=== PATIENT | male | born 1960 | race Caucasian/White ===

== ENCOUNTER 2018-10-22 10:00 | Emergency (ER) | payer BC, MEDICARE ==
[2018-10-22] MEDS ORDERED: Sodium Chloride 0.9% 10 ML Syringe FLUSH PRN (10:31)
--- NOTE | 2018-10-22 10:38 | EDM.PDOC ---
ED HPI GENERAL MEDICAL PROBLEM - General Chief Complaint: Neuro Symptoms/Deficits Stated Complaint: fallen, mara remember Time Seen by Provider: 10/22/18 10:31 Source of Information: Reports: Patient, Family () History Limitations: Reports: No Limitations - History of Present Illness INITIAL COMMENTS - FREE TEXT/NARRATIVE: Patient is a 57-year-old gentleman who presents to the emergency department this morning with his and has a complaint of head injury. states that the fell twice this morning. 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 Currently undergoing physical therapy. This morning she states that he was bent over to pet the cat and fell forward and she found him on the floor. He was able to stand with no residual at that point. 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 was concerned because patient seemed unaware of what just happened. At this time patient denies headache, blurry vision, neck pain, nausea, vomiting, chest pain, or shortness of breath. However, because of neurologic status, it is difficult to assess if there is discomfort. Onset: Today Onset Date: 10/22/18 Onset Time: 09:20 Duration: Hour(s): Location: Reports: Head Quality: Reports: Other (Patient Denies pain at this time) Improves with: Reports: None Worsens with: Reports: None Context: Reports: Trauma Associated Symptoms: Reports: No Other Symptoms. Denies: Chest Pain, Nausea/ Vomiting - Related Data Allergies Allergy/AdvReac Type Severity Reaction Status Date / Time No Known Drug Allergies Allergy Cannot Verified 10/22/18 10:13 Remember Home Meds: Home Meds atorvaSTATin [Lipitor] 5 mg PO BEDTIME 08/12/16 [History] clonazePAM [Clonazepam] 0.5 mg PO TID 08/12/16 [History] Melatonin 3 mg PO BEDTIME 08/23/16 [History] Deutetrabenazine [Austedo] 12 mg PO DAILY 07/02/17 [History] Divalproex Sodium [Depakote] 250 mg PO BID 07/02/17 [History] Escitalopram Oxalate 20 mg PO DAILY 07/02/17 [History] Past Medical History Cardiovascular History: Reports: High Cholesterol Genitourinary History: Reports: Renal Calculus Neurological History: Reports: Other (See Below) Other Neuro History: tremors Psychiatric History: Reports: Anxiety, Depression Endocrine/Metabolic History: Reports: Other (See Below) Other Endocrine/Metabolic History: testing done for [place]'s - Past Surgical History HEENT Surgical History: Reports: Oral Surgery, Tonsillectomy Male Surgical History: Reports: Lithotripsy (ESWL), Ureteral Stent, Vasectomy Social & Family History - Family History Cardiac: Reports: CAD Oncologic: Reports: Prostate - Caffeine Use Caffeine Use: Reports: Soda ED ROS GENERAL - Review of Systems Review Of Systems: ROS reveals no pertinent complaints other than HPI. Constitutional: Reports: No Symptoms HEENT: Reports: No Symptoms Respiratory: Reports: No Symptoms Cardiovascular: Reports: No Symptoms Endocrine: Reports: No Symptoms GI/Abdominal: Reports: No Symptoms : Reports: No Symptoms Musculoskeletal: Reports: No Symptoms Skin: Reports: No Symptoms Neurological: Reports: Confusion. Denies: Headache Psychiatric: Reports: No Symptoms Hematologic/Lymphatic: Reports: No Symptoms Immunologic: Reports: No Symptoms ED EXAM, HEAD INJURY - Physical Exam Exam: See Below Exam Limited By: No Limitations General Appearance: Alert, WD/WN, No Apparent Distress Head: Atraumatic, Normocephalic. No: Scalp Lacerations, Scalp Swelling, Scalp Abrasions, Scalp Ecchymosis, Scalp Hematoma, Scalp Tenderness, [place]'s Sign, Facial Swelling Nexus Criteria: No: Posterior, Midline Cervical Tenderness, Evidence of Intoxication, Altered Level of Consciousness, Focal Neurological Deficit, Painful Distraction Injuries Eyes: Bilateral Eye: Abnormal EOM (Slow) Ears: Normal External Exam, Normal Canal, Normal TMs Nose: Normal Inspection, No Blood Throat/Mouth: Normal Inspection, Normal Oropharynx, No Airway Compromise Neck: Non-Tender, Full Range of Motion, Normal Alignment, Normal Inspection Respiratory: No Respiratory Distress, Lungs Clear, Normal Breath Sounds, No Accessory Muscle Use, Chest Non-Tender Cardiovascular: Regular Rate, Rhythm, No Murmur GI/Abdominal Exam: Normal Bowel Sounds, Soft, Non-Tender Back Exam: Normal Inspection Extremities: Normal Inspection, Normal Range of Motion, Non-Tender Neurologic: Alert, Normal Mood/Affect, Other (Mildly confused with no recollection of falling event) - [place]eland Coma Score Best Eye Response (Collins): (4) Open Spontaneously Best Verbal Response (Leland): (5) Oriented Best Motor Response (Collins): (6) Obeys Commands Leland Total: 15 Course - Vital Signs Last Recorded V/S: Last Vital Signs Temp 96.7 F 10/22/18 10:10 Pulse 76 10/22/18 10:10 Resp 18 10/22/18 10:10 BP 130/84 10/22/18 10:10 Pulse Ox 95 10/22/18 10:10 - Orders/Labs/Meds Orders: Active Orders 24 hr Category Date Time Status Peripheral IV Care [RC] . DIRECTED Care 10/22/18 10:31 Ordered Sodium Chloride 0.9% [Saline Flush] Med 10/22/18 10:31 Ordered 10 ml FLUSH Q8HR PRN Peripheral IV Insertion Adult [OM.PC] Routine Oth 10/22/18 10:31 Ordered Medication Orders Sodium Chloride (Saline Flush) 10 ml FLUSH Q8HR PRN PRN Reason: keep vein open Labs: Laboratory Tests 10/22/18 10/22/18 10/22/18 Range/Units 10:35 10:35 10:35 WBC 5.62 (5.00-10.00) 10^3/uL RBC 4.60 (4.50-6.00) 10^6/uL Hgb 15.1 (13.0-17.0) g/dL Hct 45.3 (40.0-52.0) % MCV 98.5 H D (82.0-92.0) fL MCH 32.8 H (27.0-31.0) pg MCHC 33.3 (32.0-36.0) g/dL RDW 12.4 (11.5-14.5) % Plt Count 156 (150-400) 10^3/uL MPV 11.6 H (7.4-10.4) fL Immature Gran % (Auto) 0.4 (0.0-5.0) % Neut % (Auto) 58.5 (50.0-70.0) % Lymph % (Auto) 26.0 (20.0-40.0) % [place] % (Auto) 11.7 H (2.0-8.0) % Eos % (Auto) 2.7 (1.0-3.0) % Baso % (Auto) 0.7 (0.0-1.0) % Immature Gran # (Auto) 0.02 (0.00-0.50) 10^3/uL Neut # (Auto) 3.29 (2.50-7.00) 10^3/uL Lymph # (Auto) 1.46 (1.00-4.00) 10^3/uL [place] # (Auto) 0.66 (0.10-0.80) 10^3/uL Eos # (Auto) 0.15 (0.10-0.30) 10^3/uL Baso # (Auto) 0.04 (0.00-0.10) 10^3/uL PT 9.7 (8.9-11.4) SEC INR 1.0 (0.9-1.1) APTT 26.4 (23.1-31.3) SEC Sodium 143 (136-145) mmol/L Potassium 4.7 (3.3-5.3) mmol/L Chloride 107 (98-115) mmol/L Carbon Dioxide 28.8 (21.0-32.0) mmol/L Anion Gap 11.9 (5-15) mmol/L BUN 45 H (6-25) mg/dL Creatinine 2.96 H (0.51-1.17) mg/dL Est Cr Clr Drug Dosing 1.05 mL/min Estimated GFR (MDRD) 22 mL/min Glucose 92 (75 - 99) mg/dL Calcium 9.1 (8.7-10.3) mg/dL Total Bilirubin 0.5 (0.2-1.0) mg/dL AST 11 L (15-37) U/L ALT 19 (12-78) U/L Alkaline Phosphatase 61 (46-116) IU/L Total Protein 7.2 (6.4-8.2) g/dL Albumin 3.33 (3.00-4.80) g/dL Specimen Type Urine Color (YELLOW) Urine Appearance (CLEAR) Urine pH (5.0-9.0) Ur Specific Lambert (1.005-1.030) Urine Protein (NEGATIVE) mg/dL Urine Glucose (UA) (NEGATIVE) mg/dL Urine Ketones (NEGATIVE) mg/dL Urine Occult Blood (NEGATIVE) Urine Nitrite (NEGATIVE) Urine Bilirubin (NEGATIVE) Urine Urobilinogen (0.2-1.0) E.U./dL Ur Leukocyte Esterase (NEGATIVE) Urine RBC (0-5) /HPF Urine WBC (0-5) /HPF Ur Epithelial Cells /LPF Urine Bacteria (NONE TO FEW) /HPF 10/22/18 Range/Units 11:30 WBC (5.00-10.00) 10^3/uL RBC (4.50-6.00) 10^6/uL Hgb (13.0-17.0) g/dL Hct (40.0-52.0) % MCV (82.0-92.0) fL MCH (27.0-31.0) pg MCHC (32.0-36.0) g/dL RDW (11.5-14.5) % Plt Count (150-400) 10^3/uL MPV (7.4-10.4) fL Immature Gran % (Auto) (0.0-5.0) % Neut % (Auto) (50.0-70.0) % Lymph % (Auto) (20.0-40.0) % [place] % (Auto) (2.0-8.0) % Eos % (Auto) (1.0-3.0) % Baso % (Auto) (0.0-1.0) % Immature Gran # (Auto) (0.00-0.50) 10^3/uL Neut # (Auto) (2.50-7.00) 10^3/uL Lymph # (Auto) (1.00-4.00) 10^3/uL [place] # (Auto) (0.10-0.80) 10^3/uL Eos # (Auto) (0.10-0.30) 10^3/uL Baso # (Auto) (0.00-0.10) 10^3/uL PT (8.9-11.4) SEC INR (0.9-1.1) APTT (23.1-31.3) SEC Sodium (136-145) mmol/L Potassium (3.3-5.3) mmol/L Chloride (98-115) mmol/L Carbon Dioxide (21.0-32.0) mmol/L Anion Gap (5-15) mmol/L BUN (6-25) mg/dL Creatinine (0.51-1.17) mg/dL Est Cr Clr Drug Dosing mL/min Estimated GFR (MDRD) mL/min Glucose (75 - 99) mg/dL Calcium (8.7-10.3) mg/dL Total Bilirubin (0.2-1.0) mg/dL AST (15-37) U/L ALT (12-78) U/L Alkaline Phosphatase (46-116) IU/L Total Protein (6.4-8.2) g/dL Albumin (3.00-4.80) g/dL Specimen Type Urinvoid Urine Color Yellow (YELLOW) Urine Appearance Clear (CLEAR) Urine pH 6.0 (5.0-9.0) Ur Specific [place] 1.025 (1.005-1.030) Urine Protein Negative (NEGATIVE) mg/dL Urine Glucose (UA) Negative (NEGATIVE) mg/dL Urine Ketones Negative (NEGATIVE) mg/dL Urine Occult Blood Trace-lysed H (NEGATIVE) Urine Nitrite Negative (NEGATIVE) Urine Bilirubin Negative (NEGATIVE) Urine Urobilinogen 0.2 (0.2-1.0) E.U./dL Ur Leukocyte Esterase Negative (NEGATIVE) Urine RBC 0-5 (0-5) /HPF Urine WBC 10-20 H (0-5) /HPF Ur Epithelial Cells Occasional /LPF Urine Bacteria Occasional (NONE TO FEW) /HPF Meds: Medications Generic Name Dose Route Start Last Admin Trade Name Freq PRN Reason Stop Dose Admin Sodium Chloride 10 ml 10/22/18 10:31 Saline Flush FLUSH Q8HR PRN keep vein open - Radiology Interpretation Free Text/Narrative:: CT head without contrast shows no intracranial process. Cervical spine without contrast shows no acute fracture CT Results Date: 10/22/18 - Re-Assessments/Exams Free Text/Narrative Re-Assessment/Exam: 10/22/18 12:03 Patient afebrile, appears nontoxic and is acting appropriate, vital signs stable , at bedside. Discussed elevated renal lab values with . These values are not out of norm for the patient. Patient will follow-up with PCP in one to days. Patient will return to emergency department if symptoms worsen. 10/22/18 12:05 Departure - Departure Time of Disposition: 12:03 Disposition: Home, Self-Care 01 Condition: Good Clinical Impression: Head injury due to trauma Qualifiers: Encounter type: initial encounter Qualified Code(s): S09.90XA - Unspecified injury of head, initial encounter Concussion Qualifiers: Encounter type: initial encounter Loss of consciousness presence/duration: without LOC Qualified Code(s): S06.0X0A - Concussion without loss of consciousness, initial encounter - Discharge Information Instructions: Concussion, Adult, [id number], Head Injury, Adult, [id number] Referrals: Teri Khalil MD [Primary Care Provider] - Forms: ED Department Discharge Additional Instructions: Follow-up with Dr. Peters in one to 2 days. Return to emergency department sooner if symptoms continue or worsen. Follow head injury precautions - My Orders Last 24 Hours: My Active Orders 10/22/18 10:31 Peripheral IV Care [RC] . DIRECTED Sodium Chloride 0.9% [Saline Flush] 10 ml FLUSH Q8HR PRN Peripheral IV Insertion Adult [OM.PC] Routine - Assessment/Plan Last 24 Hours: My Active Orders 10/22/18 10:31 Peripheral IV Care [RC] . DIRECTED Sodium Chloride 0.9% [Saline Flush] 10 ml FLUSH Q8HR PRN Peripheral IV Insertion Adult [OM.PC] Routine Assessment:: Head injury, concussion Plan: Follow-up with PCP in one to 2 days.
[2018-10-22 11:21] LABS: ANION GAP 11.9 mmol/L (5-15)
--- NOTE | 2018-10-22 11:39 | CT ---
[id number] CT/CT Head WO IV EXAM: CT Head WO IV CLINICAL DATA: HEAD INJURY. COMPARISON STUDY: MRI of the brain January 27, 2016. FINDINGS: No intracranial hemorrhage, extra-axial fluid collection, mass, or acute ischemia. Generalized parenchymal atrophy with scattered areas of nonspecific white matter disease, commonly seen as sequela of chronic microvascular ischemia. Soft tissues are unremarkable. Paranasal sinuses and mastoid air cells are clear. IMPRESSION: No acute intracranial findings. Robby Correa DO 10/22/18 1136 Thank you for allowing us to participate in the care of your patient.
--- NOTE | 2018-10-22 11:49 | CT ---
[id number] CT/CT Cervical Spine WO IV EXAM: NONCONTRAST CERVICAL SPINE CT INDICATION: Head injury. COMPARISON: January 27, 2016. DISCUSSION: Straightening of the cervical lordosis is somewhat more pronounced than on the prior examination. The vertebral bodies are otherwise normal in height and alignment. No fracture or suspicious osseous lesion is identified. Moderate degenerative disc disease at C5-C6 with mild to moderate changes at the remaining disc levels. Mild to moderate facet degeneration throughout the cervical spine. IMPRESSION: 1. No acute findings. Irvin Corley MD 10/22/18 1147 Thank you for allowing us to participate in the care of your patient.
[2018-10-22 14:34] VITALS: BP 125/75
== END 2018-10-22 12:15 | disposition home or self-care (01) ==
LOC: KA.ED 10:00
DX: S06.0X0A Concussion without loss of consciousness, initial encounter (principal); E78.00 Pure hypercholesterolemia, unspecified; F41.9 Anxiety disorder, unspecified; F32.9 Major depressive disorder, single episode, unspecified; G10 Huntington's disease; Z79.899 Other long term (current) drug therapy; W18.30XA Fall on same level, unspecified, initial encounter
CPT/HCPCS: 36415; 70450; 72125; 80053; 81001; 85025; 85610; 85730; 99284

== ENCOUNTER 2019-05-29 20:38 | Emergency (ER) | payer BC, MEDICARE, MEDICAID ==
--- NOTE | 2019-05-29 21:28 | EDM.PDOC ---
ED HPI GENERAL MEDICAL PROBLEM - General Stated Complaint: SYNCOPAL EPISODE Time Seen by Provider: 05/29/19 21:06 Source of Information: Reports: Patient, Family ( and son) History Limitations: Reports: No Limitations - History of Present Illness INITIAL COMMENTS - FREE TEXT/NARRATIVE: Patient brought via ambulance with syncopal episode that lasted about 15 minutes. He was eating at a restaurant with his family when they noticed he was becoming very drowsy. He was leaning over gradually further and further but still trying to eat then was unconscious and his held his head up. He vomited a little bit but didn't respond at all for about 15 minutes. He regained consciousness during the ambulance ride. He didn't experience incontinence during this. He has had a couple episodes of fecal incontinence and one of urine incontinence in last few days which his says isn't normal. He has Casi's Disease and significant kidney disease; also prostate cancer and a pelvic mass that are not being treated. She says he had some of these symptoms about a year ago when he was found to have sepsis. He did have a fever then but has not recently. His is suspicious he may have aspirated some of the emesis. - Related Data Allergies Allergy/AdvReac Type Severity Reaction Status Date / Time No Known Drug Allergies Allergy Cannot Verified 10/22/18 10:13 Remember Home Meds: Home Meds atorvaSTATin [Lipitor] 5 mg PO BEDTIME 08/12/16 [History] clonazePAM [Clonazepam] 0.5 mg PO BID 08/12/16 [History] Melatonin 10 mg PO BEDTIME 08/23/16 [History] Deutetrabenazine [Austedo] 12 mg PO BID 07/02/17 [History] Divalproex Sodium [Depakote] 250 mg PO BID 07/02/17 [History] Escitalopram Oxalate 20 mg PO DAILY 07/02/17 [History] Cholecalciferol (Vitamin D3) [Vitamin D3] 1,000 units PO DAILY 10/22/18 [History ] Magnesium 250 mg PO DAILY 10/22/18 [History] Past Medical History Cardiovascular History: Reports: High Cholesterol Genitourinary History: Reports: Renal Calculus Neurological History: Reports: Other (See Below) Other Neuro History: tremors Psychiatric History: Reports: Anxiety, Depression Endocrine/Metabolic History: Reports: Other (See Below) Other Endocrine/Metabolic History: testing done for [place]'s - Past Surgical History HEENT Surgical History: Reports: Oral Surgery, Tonsillectomy Male Surgical History: Reports: Lithotripsy (ESWL), Ureteral Stent, Vasectomy Social & Family History - Family History Cardiac: Reports: CAD Oncologic: Reports: Prostate - Caffeine Use Caffeine Use: Reports: Soda ED ROS GENERAL - Review of Systems Review Of Systems: See Below Constitutional: Denies: Fever, Chills HEENT: Denies: Throat Pain Respiratory: Denies: Shortness of Breath, Cough Cardiovascular: Reports: Syncope. Denies: Chest Pain GI/Abdominal: Reports: Diarrhea (recently but resolved now), Vomiting. Denies: Abdominal Pain : Denies: Dysuria, Flank Pain Musculoskeletal: Reports: Other (chronic tremor) Skin: Denies: Cyanosis, Jaundice, Mottled, Pallor, Diaphoresis Neurological: Reports: Syncope. Denies: Confusion, Dizziness, Seizure Psychiatric: Denies: Agitation, Anxiety - Physical Exam Exam: See Below Exam Limited By: Other (doesn't understand or comply with some requests) General Appearance: Alert, WD/WN, No Apparent Distress Eye Exam: Bilateral Eye: EOMI, Normal Inspection, PERRL Ears: Normal External Exam, Hearing Grossly Normal Nose: Normal Inspection, No Blood Throat/Mouth: Normal Inspection, Normal Lips, Normal Voice, No Airway Compromise Head Exam: Atraumatic, Normocephalic Neck: Normal Inspection, Supple, Non-Tender, Full Range of Motion. No: Carotid Bruit Respiratory/Chest: No Respiratory Distress, Lungs Clear, No Accessory Muscle Use , Other (He doesn't take deep breaths consistently on command but seems adequate and no definite crackles) Cardiovascular: Normal Peripheral Pulses, Regular Rate, Rhythm, No Edema, No Murmur GI/Abdominal: Normal Bowel Sounds, Soft, Non-Tender, No Organomegaly, No Distention Neuro Exam (Abbreviated): Alert, No Motor/Sensory Deficits Back Exam: Normal Inspection, Full Range of Motion Extremities: Normal Inspection, Normal Range of Motion, Non-Tender, No Pedal Edema, Normal Capillary Refill Psychiatric: Other (typical [place] stare) Skin Exam: Warm, Dry, Intact, Normal Color, No Rash Course - Vital Signs Last Recorded V/S: Last Vital Signs Temp 98.8 F 05/29/19 22:31 Pulse 67 09/12/19 22:31 Resp 16 05/29/19 22:31 BP 109/67 05/29/19 22:31 Pulse Ox 93 L 05/29/19 22:31 - Orders/Labs/Meds Orders: Active Orders 24 hr Category Date Time Status CXR [Chest 2V] [CR] Stat Exams 05/29/19 21:59 Ordered CULTURE BLOOD [BC] Stat Lab 05/29/19 21:19 Ordered CULTURE BLOOD [BC] Stat Lab 05/29/19 21:19 Ordered Blood Culture x2 Reflex Set [OM.PC] Stat Oth 05/29/19 21:18 Ordered Labs: Laboratory Tests 05/29/19 05/29/19 05/29/19 Range/Units 21:30 21:30 21:30 WBC 13.99 H (5.00-10.00) 10^3/uL RBC 4.39 L (4.50-6.00) 10^6/uL Hgb 14.4 (13.0-17.0) g/dL Hct 42.7 (40.0-52.0) % MCV 97.3 H (82.0-92.0) fL MCH 32.8 H (27.0-31.0) pg MCHC 33.7 (32.0-36.0) g/dL RDW 12.5 (11.5-14.5) % Plt Count 192 (150-400) 10^3/uL MPV 10.9 H (7.4-10.4) fL Immature Gran % (Auto) 0.4 (0.0-5.0) % Neut % (Auto) 81.4 H (50.0-70.0) % Lymph % (Auto) 8.4 L (20.0-40.0) % [place] % (Auto) 9.1 H (2.0-8.0) % Eos % (Auto) 0.4 L (1.0-3.0) % Baso % (Auto) 0.3 (0.0-1.0) % Immature Gran # (Auto) 0.06 (0.00-0.50) 10^3/uL Neut # (Auto) 11.38 H (2.50-7.00) 10^3/uL Lymph # (Auto) 1.18 (1.00-4.00) 10^3/uL [place] # (Auto) 1.28 H (0.10-0.80) 10^3/uL Eos # (Auto) 0.05 L (0.10-0.30) 10^3/uL Baso # (Auto) 0.04 (0.00-0.10) 10^3/uL Sodium 136 (136-145) mmol/L Potassium 4.2 (3.3-5.3) mmol/L Chloride 100 (98-115) mmol/L Carbon Dioxide 26.8 (21.0-32.0) mmol/L Anion Gap 13.4 (5-15) mmol/L BUN 38 H (6-25) mg/dL Creatinine 2.40 H (0.51-1.17) mg/dL Est Cr Clr Drug Dosing 36.38 mL/min Estimated GFR (MDRD) 28 mL/min Glucose 139 H (75 - 99) mg/dL Lactic Acid 1.4 (0.4-2.0) mmol/L Calcium 9.4 (8.7-10.3) mg/dL Meds: Medications Discontinued Medications Generic Name Dose Route Start Last Admin Trade Name Freq PRN Reason Stop Dose Admin Ceftriaxone Sodium 1 gm 05/29/19 22:36 Rocephin IM 05/29/19 22:37 ONETIME ONE - Re-Assessments/Exams Free Text/Narrative Re-Assessment/Exam: 05/29/19 22:38 WBC 14 with ANC 11.4; Lactic acid 1.4, blood cultures pending. Kidney function is better than it's been in over 2 years. CXR looks like mild infiltrate on left. Pt cannot give urine now and denies any dysuria. Discussed findings with patient and his , including IP vs OP treatment. They are comfortable with OP treatment and will follow up with PCP tomorrow morning. Giving rocephin now. Patient usually drinks a lot of water and hasn't as much just recently, but says he will now. 05/29/19 22:54 Radiologist reads bibasilar subsegmental atelectasis versus early pneumonia. Patient discharged to home in stable condition after the Rocephin injection. Departure - Departure Time of Disposition: 22:44 Disposition: Home, Self-Care 01 Condition: Good Clinical Impression: CAP (community acquired pneumonia) Qualifiers: Laterality: unspecified laterality Qualified Code(s): J18.9 - Pneumonia, unspecified organism Episode of syncope Qualifiers: Encounter type: initial encounter - Discharge Information Instructions: Syncope, [id number] Referrals: Teri Khalil MD [Primary Care Provider] - Additional Instructions: 1. Drink 8 cups of water daily. 2. Follow up with Dr. Frost tomorrow in clinic for recheck and to determine antibiotic regimen. 3. Return to ER as needed. - My Orders Last 24 Hours: My Active Orders 05/29/19 21:18 Blood Culture x2 Reflex Set [OM.PC] Stat 05/29/19 21:19 CULTURE BLOOD [BC] Stat CULTURE BLOOD [BC] Stat 05/29/19 21:59 CXR [Chest 2V] [CR] Stat - Assessment/Plan Last 24 Hours: My Active Orders 05/29/19 21:18 Blood Culture x2 Reflex Set [OM.PC] Stat 05/29/19 21:19 CULTURE BLOOD [BC] Stat CULTURE BLOOD [BC] Stat 05/29/19 21:59 CXR [Chest 2V] [CR] Stat
[2019-05-29 21:55] LABS: ANION GAP 13.4 mmol/L (5-15)
[2019-05-29 22:32] VITALS: BP 109/67; PULSE 67
[2019-05-29] MEDS ORDERED: cefTRIAXone 1 GM Vial IM ONE (22:36)
--- NOTE | 2019-05-30 08:15 | CR ---
[id number] RAD/RAD Chest PA And Lateral EXAM: RAD Chest PA And Lateral INDICATION: LEUKOCYTOSIS. ASPIRATION. COMPARISON: None. DISCUSSION: Cardiomediastinal silhouette is normal in size and contour. Low lung volumes bilaterally resulting in bibasal vascular crowding and atelectasis. No infiltrate, effusion, pneumothorax, or edema. IMPRESSION: No radiographic evidence of pneumonia or other acute findings. If there is continued suspicion of aspiration pneumonitis or pneumonia, CT is noncontrast chest recommended. Suresh Parikh MD 05/30/19 0814 Thank you for allowing us to participate in the care of your patient.
== END 2019-05-29 22:55 | disposition home or self-care (01) ==
LOC: KA.ED 20:38
DX: R55 Syncope and collapse (principal); J18.9 Pneumonia, unspecified organism; E78.00 Pure hypercholesterolemia, unspecified; F41.9 Anxiety disorder, unspecified; F32.9 Major depressive disorder, single episode, unspecified; Z79.899 Other long term (current) drug therapy
CPT/HCPCS: 36415; 71046; 80048; 81001; 83605; 85025; 87040; 93005; 96372; 99284; J0696

== ENCOUNTER 2021-12-06 18:25 | Emergency (ER) | payer MEDICARE, MEDICAID ==
[2021-12-06 19:28] LABS: ANION GAP 14.1 mmol/L (5-15); CHLORIDE,CL 106 mmol/L (98-107); SODIUM,NA 143 mmol/L (136-145)
[2021-12-06 22:40] VITALS: BP 140/97; PULSE 87
== END 2021-12-06 20:47 ==
LOC: KA.ED 18:25
DX: R55 Syncope and collapse (principal); N18.9 Chronic kidney disease, unspecified; E87.5 Hyperkalemia; M79.89 Other specified soft tissue disorders; E78.00 Pure hypercholesterolemia, unspecified; Z79.899 Other long term (current) drug therapy
CPT/HCPCS: 36415; 70450; 71045; 73590-LT; 80053; 83605; 85025; 93010; 99284; 99285-25

== ENCOUNTER 2023-08-06 11:35 | Inpatient (IN) | payer MEDICARE, MEDICAID ==
[2023-08-06] MEDS ORDERED: Sodium Chloride 0.9% 10 ML Syringe FLUSH PRN ×2 (11:38→12:01)
[2023-08-06 11:56] LABS: BASOPHILS ABSOLUTE AUTO 0.02 10^3/uL (0.00-0.10); BASOPHILS PERCENT AUTO 0.2 % (0.0-1.0); EOSINOPHILS ABSOLUTE AUTO 0.11 10^3/uL (0.10-0.30); EOSINOPHILS PERCENT AUTO 1.3 % (1.0-3.0); HEMATOCRIT 50.5 % (40.0-52.0); HEMOGLOBIN 16.4 g/dL (13.0-17.0); IMMATURE GRAN ABSOLUTE AUTO 0.11 10^3/uL (0.00-0.50); IMMATURE GRAN PERCENT AUTO 1.3 % (0.0-5.0); LYMPHOCYTES ABSOLUTE AUTO 1.65 10^3/uL (1.00-4.00); MEAN CORPUSCULAR HEMOGLOBIN 32.7 pg (27.0-31.0); MEAN CORPUSCULAR HGB CONC 32.5 g/dL (32.0-36.0); MEAN CORPUSCULAR VOLUME 100.6 fL (82.0-92.0); MEAN PLATELET VOLUME 11.7 fL (7.4-10.4); MONOCYTES ABSOLUTE AUTO 1.05 10^3/uL (0.10-0.80); MONOCYTES PERCENT AUTO 12.7 % (2.0-8.0); NEUTROPHILS ABSOLUTE AUTO 5.31 10^3/uL (2.50-7.00); NEUTROPHILS PERCENT AUTO 64.5 % (50.0-70.0); PLATELET COUNT,PLT 127 10^3/uL (150-400); RED BLOOD CELL COUNT 5.02 10^6/uL (4.50-6.00); WHITE BLOOD CELL COUNT,WBC 8.25 10^3/uL (5.00-10.00)
[2023-08-06] MEDS ORDERED: Sodium Chloride 0.9% 1,000 ML IV ONE (12:01)
[2023-08-06 12:14] LABS: ALANINE AMINOTRANSFERASE,ALT 38 U/L (14-63); ALBUMIN 2.76 g/dL (3.40-5.00); ALKALINE PHOSPHATASE 86 U/L (46-116); ANION GAP 13.5 mmol/L (5-15); ASPARTATE AMNIOTRANSFERASE,AST 20 U/L (15-37); BILIRUBIN TOTAL 0.3 mg/dL (0.2-1.0); BLOOD UREA NITROGEN,BUN 45 mg/dL (7-18); CALCIUM 9.3 mg/dL (8.7-10.3); CARBON DIOXIDE,CO2 25.5 mmol/L (21.0-32.0); CHLORIDE,CL 107 mmol/L (98-107); CREATININE 2.45 mg/dL (0.51-1.17); ESTIMATED GFR 29 mL/min (>=60); GLUCOSE RANDOM 120 mg/dL (70-140); LACTIC ACID 1.4 mmol/L (0.4-2.0); SODIUM,NA 141 mmol/L (136-145)
[2023-08-06 12:15] LABS: B-TYPE NATRIURETIC PEPTIDE,BNP 89 pg/mL (0-100)
[2023-08-06] MEDS ORDERED: Iopamidol 755 Mg/ML 100 ML Bottle IV ONE (13:35)
[2023-08-06] MEDS ORDERED: Sodium Chloride 0.9% 50 ML IV SCH (13:45)
[2023-08-06] MEDS ORDERED: Sodium Chloride 0.9% 100 ML IV SCH (13:45)
[2023-08-06 13:51] LABS: INFLUENZA A NAA NEGATIVE (NEGATIVE); INFLUENZA B NAA NEGATIVE (NEGATIVE); RESPIRATORY SYNCYTIAL VIR NAA NEGATIVE (NEGATIVE)
[2023-08-06 13:53] LABS: CORONAVIRUS COVID-19 NAA NEGATIVE (NEGATIVE)
[2023-08-06] MEDS ORDERED: Heparin Sodium 5,000 Units/ML Vial IVPUSH ONE (13:54)
[2023-08-06] MEDS ORDERED: Heparin Sodium/D5W 250 ML IV SCH (14:15)
[2023-08-06] MEDS: Heparin Sodium/D5W 250 ML IV SCH (14:40)
[2023-08-06] MEDS ORDERED: Sodium Chloride 0.9% 1,000 ML IV SCH (15:15)
[2023-08-06] MEDS ORDERED: Ondansetron 4 MG/2 ML SDV IV PRN (18:00)
[2023-08-06] MEDS ORDERED: Morphine 2 MG/ML SYRINGE IVPUSH PRN (18:00)
[2023-08-06] MEDS ORDERED: Docusate Sodium 100 MG Cap PO PRN (18:00)
[2023-08-06] MEDS ORDERED: Acetaminophen 325 MG Tab PO PRN (18:00)
[2023-08-06] MEDS ORDERED: Polyethylene Glycol 3350 Powder 17 GM Packet PO PRN (18:00)
[2023-08-06] MEDS: Furosemide 40 MG/4 ML VIAL IVPUSH SCH (19:26)
[2023-08-06] MEDS: Meropenem 1 GM in Sodium Chloride 0.9% 100 ML IV SCH (19:40)
[2023-08-06] MEDS: Sodium Chloride 0.9% 250 ML IV SCH (20:10)
[2023-08-06] MEDS: atorvaSTATin 10 MG Tab PO SCH (20:28)
[2023-08-06] MEDS: Memantine 10 MG Tab PO SCH (20:28)
[2023-08-06] MEDS ORDERED: DEUTETRABENAZINE 6 MG PO SCH (21:00)
[2023-08-06] MEDS ORDERED: Divalproex Sodium Delayed-Release 250 MG Tab.CR PO SCH (21:00)
[2023-08-06] MEDS ORDERED: Acetaminophen 325 MG Tab PO SCH (21:00)
[2023-08-07] MEDS: Meropenem 1 GM in Sodium Chloride 0.9% 100 ML IV SCH ×2 (02:31→15:10)
[2023-08-07] MEDS: Heparin Sodium/D5W 250 ML IV SCH ×2 (04:08→18:26)
[2023-08-07 04:19] LABS: BASOPHILS ABSOLUTE AUTO 0.02 10^3/uL (0.00-0.10); BASOPHILS PERCENT AUTO 0.3 % (0.0-1.0); EOSINOPHILS ABSOLUTE AUTO 0.16 10^3/uL (0.10-0.30); EOSINOPHILS PERCENT AUTO 2.1 % (1.0-3.0); HEMATOCRIT 46.8 % (40.0-52.0); IMMATURE GRAN ABSOLUTE AUTO 0.12 10^3/uL (0.00-0.50); IMMATURE GRAN PERCENT AUTO 1.6 % (0.0-5.0); LYMPHOCYTES ABSOLUTE AUTO 1.72 10^3/uL (1.00-4.00); LYMPHOCYTES PERCENT AUTO 22.8 % (20.0-40.0); MEAN CORPUSCULAR HEMOGLOBIN 32.4 pg (27.0-31.0); MEAN CORPUSCULAR HGB CONC 32.1 g/dL (32.0-36.0); MEAN CORPUSCULAR VOLUME 101.1 fL (82.0-92.0); MEAN PLATELET VOLUME 10.9 fL (7.4-10.4); MONOCYTES ABSOLUTE AUTO 0.82 10^3/uL (0.10-0.80); MONOCYTES PERCENT AUTO 10.9 % (2.0-8.0); NEUTROPHILS ABSOLUTE AUTO 4.71 10^3/uL (2.50-7.00); NEUTROPHILS PERCENT AUTO 62.3 % (50.0-70.0); PLATELET COUNT,PLT 123 10^3/uL (150-400); RED BLOOD CELL COUNT 4.63 10^6/uL (4.50-6.00); RED CELL DISTRIBUTION WIDTH 13.1 % (11.5-14.5); WHITE BLOOD CELL COUNT,WBC 7.55 10^3/uL (5.00-10.00)
[2023-08-07 04:34] LABS: C-REACTIVE PROTEIN 3.4 mg/dL (0.0-0.9); CALCIUM 8.6 mg/dL (8.7-10.3); CARBON DIOXIDE,CO2 27.5 mmol/L (21.0-32.0); CREATININE 2.19 mg/dL (0.51-1.17); EST CRCL DRUG DOSING (CG) 37.89 mL/min; MAGNESIUM 1.6 mg/dL (1.8-2.4); POTASSIUM,K 4.5 mmol/L (3.5-5.1)
[2023-08-07] MEDS: Dutasteride 0.5 MG Cap PO SCH (08:00)
[2023-08-07] MEDS: Escitalopram 10 MG Tab PO SCH (08:00)
[2023-08-07] MEDS: Memantine 10 MG Tab PO SCH ×2 (08:00→20:43)
[2023-08-07] MEDS: Tamsulosin 0.4 MG Cap.ER PO SCH (08:00)
[2023-08-07] MEDS: ClonazePAM 0.5 MG Tab PO SCH ×2 (08:00→15:09)
[2023-08-07] MEDS: Furosemide 40 MG/4 ML VIAL IVPUSH SCH ×2 (08:03→16:16)
[2023-08-07] MEDS: PROPRANOLOL HCL 120 MG PO SCH (08:04)
[2023-08-07] MEDS: DEUTETRABENAZINE 6 MG PO SCH ×2 (08:04→20:44)
[2023-08-07] MEDS: Divalproex Sodium Delayed-Release 250 MG Tab.CR PO SCH ×3 (08:05→20:43)
[2023-08-07] MEDS ORDERED: VANCOmycin 1 GM/200 ML 1 GM in Premix Bag 1 BAG IV SCH (08:45)
[2023-08-07] MEDS: PEG 400/Hypromellose/Glycerin 15 ML Bottle EYEBOTH PRN ×2 (10:15→18:46)
[2023-08-07] MEDS: atorvaSTATin 10 MG Tab PO SCH (20:42)
[2023-08-07] MEDS: VANCOmycin 500 MG/100 ML 500 MG in Premix Bag 1 BAG IV SCH (20:43)
[2023-08-07] MEDS ORDERED: VANCOmycin 1.25 GM/250 ML 1.25 GM in Premix Bag 1 BAG IV SCH (21:30)
[2023-08-08] MEDS: Meropenem 1 GM in Sodium Chloride 0.9% 100 ML IV SCH ×2 (03:07→15:15)
[2023-08-08] MEDS: Sodium Chloride 0.9% 250 ML IV SCH (03:07)
[2023-08-08] MEDS: Divalproex Sodium Delayed-Release 250 MG Tab.CR PO SCH ×3 (06:11→18:16)
[2023-08-08] MEDS: PEG 400/Hypromellose/Glycerin 15 ML Bottle EYEBOTH PRN (06:26)
[2023-08-08 07:13] LABS: BASOPHILS ABSOLUTE AUTO 0.05 10^3/uL (0.00-0.10); BASOPHILS PERCENT AUTO 0.6 % (0.0-1.0); EOSINOPHILS ABSOLUTE AUTO 0.17 10^3/uL (0.10-0.30); EOSINOPHILS PERCENT AUTO 2.2 % (1.0-3.0); HEMATOCRIT 46.5 % (40.0-52.0); HEMOGLOBIN 14.9 g/dL (13.0-17.0); IMMATURE GRAN ABSOLUTE AUTO 0.08 10^3/uL (0.00-0.50); LYMPHOCYTES ABSOLUTE AUTO 1.69 10^3/uL (1.00-4.00); LYMPHOCYTES PERCENT AUTO 21.8 % (20.0-40.0); MEAN CORPUSCULAR HEMOGLOBIN 32.8 pg (27.0-31.0); MEAN CORPUSCULAR VOLUME 102.4 fL (82.0-92.0); MONOCYTES ABSOLUTE AUTO 0.96 10^3/uL (0.10-0.80); MONOCYTES PERCENT AUTO 12.4 % (2.0-8.0); NEUTROPHILS ABSOLUTE AUTO 4.81 10^3/uL (2.50-7.00); PLATELET COUNT,PLT 145 10^3/uL (150-400); RED BLOOD CELL COUNT 4.54 10^6/uL (4.50-6.00); WHITE BLOOD CELL COUNT,WBC 7.76 10^3/uL (5.00-10.00)
[2023-08-08 07:34] LABS: ANION GAP 11.3 mmol/L (5-15); CALCIUM 9.5 mg/dL (8.7-10.3); CARBON DIOXIDE,CO2 31.3 mmol/L (21.0-32.0); CREATININE 2.3 mg/dL (0.51-1.17); EST CRCL DRUG DOSING (CG) 36.08 mL/min; MAGNESIUM 1.6 mg/dL (1.8-2.4); POTASSIUM,K 4.6 mmol/L (3.5-5.1)
[2023-08-08] MEDS: Heparin Sodium/D5W 250 ML IV SCH ×2 (09:00→14:45)
[2023-08-08] MEDS: PROPRANOLOL HCL 120 MG PO SCH (09:01)
[2023-08-08] MEDS: DEUTETRABENAZINE PO SCH (09:02)
[2023-08-08] MEDS: Escitalopram 10 MG Tab PO SCH (09:03)
[2023-08-08] MEDS: Tamsulosin 0.4 MG Cap.ER PO SCH (09:03)
[2023-08-08] MEDS: Memantine 10 MG Tab PO SCH ×2 (09:03→21:12)
[2023-08-08] MEDS: Dutasteride 0.5 MG Cap PO SCH (09:03)
[2023-08-08] MEDS: Furosemide 40 MG/4 ML VIAL IVPUSH SCH (09:03)
[2023-08-08] MEDS: ClonazePAM 0.5 MG Tab PO SCH ×2 (09:04→14:05)
[2023-08-08] MEDS: VANCOmycin 500 MG/100 ML 500 MG in Premix Bag 1 BAG IV SCH ×2 (09:33→21:29)
[2023-08-08] MEDS: Magnesium Oxide 500 MG Tab PO SCH (14:05)
[2023-08-08] MEDS ORDERED: Warfarin 5 MG Tab PO SCH (18:00)
[2023-08-08] MEDS: atorvaSTATin 10 MG Tab PO SCH (21:11)
[2023-08-09] MEDS: Meropenem 1 GM in Sodium Chloride 0.9% 100 ML IV SCH ×2 (02:43→14:39)
[2023-08-09] MEDS: Heparin Sodium/D5W 250 ML IV SCH ×2 (04:46→21:25)
[2023-08-09] MEDS: Divalproex Sodium Delayed-Release 250 MG Tab.CR PO SCH ×3 (06:31→18:05)
[2023-08-09 07:15] LABS: BASOPHILS ABSOLUTE AUTO 0.02 10^3/uL (0.00-0.10); BASOPHILS PERCENT AUTO 0.3 % (0.0-1.0); EOSINOPHILS ABSOLUTE AUTO 0.15 10^3/uL (0.10-0.30); EOSINOPHILS PERCENT AUTO 2.1 % (1.0-3.0); HEMATOCRIT 45.9 % (40.0-52.0); HEMOGLOBIN 14.8 g/dL (13.0-17.0); IMMATURE GRAN ABSOLUTE AUTO 0.08 10^3/uL (0.00-0.50); IMMATURE GRAN PERCENT AUTO 1.1 % (0.0-5.0); LYMPHOCYTES ABSOLUTE AUTO 1.77 10^3/uL (1.00-4.00); LYMPHOCYTES PERCENT AUTO 24.5 % (20.0-40.0); MEAN CORPUSCULAR HEMOGLOBIN 32.6 pg (27.0-31.0); MEAN CORPUSCULAR HGB CONC 32.2 g/dL (32.0-36.0); MEAN CORPUSCULAR VOLUME 101.1 fL (82.0-92.0); MEAN PLATELET VOLUME 10.9 fL (7.4-10.4); MONOCYTES ABSOLUTE AUTO 0.87 10^3/uL (0.10-0.80); NEUTROPHILS ABSOLUTE AUTO 4.34 10^3/uL (2.50-7.00); PLATELET COUNT,PLT 144 10^3/uL (150-400); RED BLOOD CELL COUNT 4.54 10^6/uL (4.50-6.00); RED CELL DISTRIBUTION WIDTH 12.7 % (11.5-14.5); WHITE BLOOD CELL COUNT,WBC 7.23 10^3/uL (5.00-10.00)
[2023-08-09 07:30] LABS: ANION GAP 11.2 mmol/L (5-15); CALCIUM 8.9 mg/dL (8.7-10.3); CARBON DIOXIDE,CO2 30.8 mmol/L (21.0-32.0); CREATININE 2.16 mg/dL (0.51-1.17); EST CRCL DRUG DOSING (CG) 38.42 mL/min; MAGNESIUM 1.6 mg/dL (1.8-2.4)
[2023-08-09 07:33] LABS: PROTHROMBIN TIME 10.3 SEC (9.2-11.2)
[2023-08-09] MEDS: Escitalopram 10 MG Tab PO SCH (09:26)
[2023-08-09] MEDS: ClonazePAM 0.5 MG Tab PO SCH ×2 (09:26→14:19)
[2023-08-09] MEDS: Dutasteride 0.5 MG Cap PO SCH (09:26)
[2023-08-09] MEDS: VANCOmycin 500 MG/100 ML 500 MG in Premix Bag 1 BAG IV SCH ×3 (09:27→20:36)
[2023-08-09] MEDS: PROPRANOLOL HCL 120 MG PO SCH (09:27)
[2023-08-09] MEDS: Memantine 10 MG Tab PO SCH ×2 (09:27→20:03)
[2023-08-09] MEDS: Tamsulosin 0.4 MG Cap.ER PO SCH (09:27)
[2023-08-09] MEDS: DEUTETRABENAZINE PO SCH (09:27)
[2023-08-09] MEDS: Sodium Chloride 0.9% 250 ML IV SCH (09:27)
[2023-08-09] MEDS: Magnesium Oxide 500 MG Tab PO SCH ×2 (09:27→14:19)
[2023-08-09] MEDS: Furosemide 40 MG/4 ML VIAL IVPUSH SCH (17:35)
[2023-08-09] MEDS ORDERED: Warfarin 5 MG Tab PO ONE (18:00)
[2023-08-09] MEDS: atorvaSTATin 10 MG Tab PO SCH (20:03)
[2023-08-10] MEDS: Meropenem 1 GM in Sodium Chloride 0.9% 100 ML IV SCH ×2 (02:02→14:03)
[2023-08-10] MEDS: Divalproex Sodium Delayed-Release 250 MG Tab.CR PO SCH ×3 (06:05→18:06)
[2023-08-10 07:33] LABS: BASOPHILS ABSOLUTE AUTO 0.02 10^3/uL (0.00-0.10); BASOPHILS PERCENT AUTO 0.3 % (0.0-1.0); EOSINOPHILS ABSOLUTE AUTO 0.18 10^3/uL (0.10-0.30); EOSINOPHILS PERCENT AUTO 2.5 % (1.0-3.0); HEMATOCRIT 48.8 % (40.0-52.0); HEMOGLOBIN 15.6 g/dL (13.0-17.0); IMMATURE GRAN ABSOLUTE AUTO 0.12 10^3/uL (0.00-0.50); IMMATURE GRAN PERCENT AUTO 1.7 % (0.0-5.0); LYMPHOCYTES ABSOLUTE AUTO 1.64 10^3/uL (1.00-4.00); LYMPHOCYTES PERCENT AUTO 22.9 % (20.0-40.0); MEAN CORPUSCULAR HEMOGLOBIN 32.3 pg (27.0-31.0); MONOCYTES ABSOLUTE AUTO 0.81 10^3/uL (0.10-0.80); MONOCYTES PERCENT AUTO 11.3 % (2.0-8.0); NEUTROPHILS ABSOLUTE AUTO 4.39 10^3/uL (2.50-7.00); NEUTROPHILS PERCENT AUTO 61.3 % (50.0-70.0); PLATELET COUNT,PLT 149 10^3/uL (150-400); RED BLOOD CELL COUNT 4.83 10^6/uL (4.50-6.00); RED CELL DISTRIBUTION WIDTH 12.6 % (11.5-14.5); WHITE BLOOD CELL COUNT,WBC 7.16 10^3/uL (5.00-10.00)
[2023-08-10 07:51] LABS: INR 1.2 (0.9-1.1); PROTHROMBIN TIME 11.6 SEC (9.2-11.2)
[2023-08-10 08:01] LABS: ANION GAP 8.9 mmol/L (5-15); CALCIUM 9.3 mg/dL (8.7-10.3); CARBON DIOXIDE,CO2 31.9 mmol/L (21.0-32.0); CREATININE 2.04 mg/dL (0.51-1.17); EST CRCL DRUG DOSING (CG) 40.68 mL/min; MAGNESIUM 1.9 mg/dL (1.8-2.4); POTASSIUM,K 4.8 mmol/L (3.5-5.1)
[2023-08-10] MEDS: Dutasteride 0.5 MG Cap PO SCH (08:34)
[2023-08-10] MEDS: Magnesium Oxide 500 MG Tab PO SCH (08:34)
[2023-08-10] MEDS: Furosemide 40 MG/4 ML VIAL IVPUSH SCH ×2 (08:35→16:36)
[2023-08-10] MEDS: Escitalopram 10 MG Tab PO SCH (08:35)
[2023-08-10] MEDS: Tamsulosin 0.4 MG Cap.ER PO SCH (08:35)
[2023-08-10] MEDS: ClonazePAM 0.5 MG Tab PO SCH ×2 (08:35→13:59)
[2023-08-10] MEDS: Memantine 10 MG Tab PO SCH ×2 (08:36→21:05)
[2023-08-10] MEDS: DEUTETRABENAZINE PO SCH (08:39)
[2023-08-10] MEDS: VANCOmycin 500 MG/100 ML 500 MG in Premix Bag 1 BAG IV SCH ×2 (08:40→21:05)
[2023-08-10] MEDS: PROPRANOLOL HCL 120 MG PO SCH (08:40)
[2023-08-10] MEDS ORDERED: Meropenem 1 GM SDV ONE (13:39)
[2023-08-10] MEDS: Heparin Sodium/D5W 250 ML IV SCH (13:54)
[2023-08-10] MEDS ORDERED: Heparin Sodium 5,000 Units/ML Vial IVPUSH ONE (16:16)
[2023-08-10] MEDS ORDERED: Warfarin 2.5 MG Tab PO ONE (18:00)
[2023-08-10] MEDS: atorvaSTATin 10 MG Tab PO SCH (21:05)
[2023-08-10] MEDS: Sodium Chloride 0.9% 250 ML IV SCH (21:09)
[2023-08-11] MEDS: Meropenem 1 GM in Sodium Chloride 0.9% 100 ML IV SCH (03:03)
[2023-08-11] MEDS: Divalproex Sodium Delayed-Release 250 MG Tab.CR PO SCH ×4 (05:48→18:06)
[2023-08-11] MEDS: Heparin Sodium/D5W 250 ML IV SCH ×2 (05:49→23:10)
[2023-08-11 07:40] LABS: INR 1.2 (0.9-1.1); PROTHROMBIN TIME 11.7 SEC (9.2-11.2)
[2023-08-11 07:42] LABS: PTT,PARTIAL THROMBOPLSTIN TIME 51.6 SEC (22.8-31.4)
[2023-08-11 08:47] LABS: BASOPHILS ABSOLUTE AUTO 0.02 10^3/uL (0.00-0.10); BASOPHILS PERCENT AUTO 0.3 % (0.0-1.0); EOSINOPHILS ABSOLUTE AUTO 0.16 10^3/uL (0.10-0.30); EOSINOPHILS PERCENT AUTO 2.3 % (1.0-3.0); HEMATOCRIT 51.9 % (40.0-52.0); HEMOGLOBIN 16.7 g/dL (13.0-17.0); IMMATURE GRAN ABSOLUTE AUTO 0.15 10^3/uL (0.00-0.50); IMMATURE GRAN PERCENT AUTO 2.1 % (0.0-5.0); LYMPHOCYTES PERCENT AUTO 22.7 % (20.0-40.0); MEAN CORPUSCULAR HEMOGLOBIN 32.3 pg (27.0-31.0); MEAN CORPUSCULAR HGB CONC 32.2 g/dL (32.0-36.0); MEAN CORPUSCULAR VOLUME 100.4 fL (82.0-92.0); MONOCYTES ABSOLUTE AUTO 0.42 10^3/uL (0.10-0.80); NEUTROPHILS PERCENT AUTO 66.6 % (50.0-70.0); PLATELET COUNT,PLT 155 10^3/uL (150-400); RED BLOOD CELL COUNT 5.17 10^6/uL (4.50-6.00); RED CELL DISTRIBUTION WIDTH 12.8 % (11.5-14.5); WHITE BLOOD CELL COUNT,WBC 7.05 10^3/uL (5.00-10.00)
[2023-08-11] MEDS: ClonazePAM 0.5 MG Tab PO SCH ×2 (08:48→13:09)
[2023-08-11] MEDS: Escitalopram 10 MG Tab PO SCH (08:48)
[2023-08-11] MEDS: Magnesium Oxide 500 MG Tab PO SCH (08:48)
[2023-08-11] MEDS: Tamsulosin 0.4 MG Cap.ER PO SCH (08:48)
[2023-08-11] MEDS: Memantine 10 MG Tab PO SCH ×2 (08:48→20:00)
[2023-08-11] MEDS: PROPRANOLOL HCL 120 MG PO SCH (08:49)
[2023-08-11] MEDS: DEUTETRABENAZINE PO SCH (08:50)
[2023-08-11] MEDS: Dutasteride 0.5 MG Cap PO SCH (08:51)
[2023-08-11] MEDS: Furosemide 40 MG/4 ML VIAL IVPUSH SCH (09:00)
[2023-08-11 09:01] LABS: ALBUMIN 3.04 g/dL (3.40-5.00); ANION GAP 12.9 mmol/L (5-15); BILIRUBIN TOTAL 0.4 mg/dL (0.2-1.0); CALCIUM 9.5 mg/dL (8.7-10.3); CARBON DIOXIDE,CO2 29.9 mmol/L (21.0-32.0); CREATININE 1.93 mg/dL (0.51-1.17); POTASSIUM,K 4.8 mmol/L (3.5-5.1); PROTEIN TOTAL,TP 7.6 g/dL (6.4-8.2)
[2023-08-11] MEDS: VANCOmycin 500 MG/100 ML 500 MG in Premix Bag 1 BAG IV SCH ×3 (09:50→20:55)
[2023-08-11] MEDS: Sodium Chloride 0.9% 250 ML IV SCH ×2 (10:50→20:01)
[2023-08-11] MEDS ORDERED: Loperamide 2 MG Cap PO ONE (11:11)
[2023-08-11] MEDS ORDERED: Amoxicillin/Clavulanate K 875-125 MG Tab PO SCH (11:15)
[2023-08-11] MEDS ORDERED: Warfarin 5 MG Tab PO ONE (18:00)
[2023-08-11] MEDS: Amoxicillin/Clavulanate K 875-125 MG Tab PO SCH (20:00)
[2023-08-11] MEDS: atorvaSTATin 10 MG Tab PO SCH (20:00)
[2023-08-12] MEDS: Divalproex Sodium Delayed-Release 250 MG Tab.CR PO SCH ×3 (05:59→18:16)
[2023-08-12 08:03] LABS: INR 1.4 (0.9-1.1); PROTHROMBIN TIME 14.1 SEC (9.2-11.2)
[2023-08-12 08:19] LABS: PTT,PARTIAL THROMBOPLSTIN TIME 83.4 SEC (22.8-31.4)
[2023-08-12] MEDS: DEUTETRABENAZINE PO SCH (08:58)
[2023-08-12] MEDS: PROPRANOLOL HCL 120 MG PO SCH (08:58)
[2023-08-12] MEDS: Tamsulosin 0.4 MG Cap.ER PO SCH (08:59)
[2023-08-12] MEDS: Escitalopram 10 MG Tab PO SCH (08:59)
[2023-08-12] MEDS: Furosemide 40 MG Tab PO SCH (08:59)
[2023-08-12] MEDS: ClonazePAM 0.5 MG Tab PO SCH ×2 (09:00→14:35)
[2023-08-12] MEDS: Amoxicillin/Clavulanate K 875-125 MG Tab PO SCH ×2 (09:00→20:51)
[2023-08-12] MEDS: Memantine 10 MG Tab PO SCH ×2 (09:00→20:51)
[2023-08-12] MEDS: Dutasteride 0.5 MG Cap PO SCH (09:01)
[2023-08-12] MEDS: VANCOmycin 500 MG/100 ML 500 MG in Premix Bag 1 BAG IV SCH (09:17)
[2023-08-12] MEDS: Heparin Sodium/D5W 250 ML IV SCH (15:39)
[2023-08-12] MEDS ORDERED: Warfarin 5 MG Tab PO ONE (18:00)
[2023-08-12] MEDS: atorvaSTATin 10 MG Tab PO SCH (20:51)
[2023-08-13] MEDS: Divalproex Sodium Delayed-Release 250 MG Tab.CR PO SCH ×3 (06:14→18:03)
[2023-08-13 07:27] LABS: ALBUMIN 2.62 g/dL (3.40-5.00); ANION GAP 11.4 mmol/L (5-15); BILIRUBIN TOTAL 0.3 mg/dL (0.2-1.0); CALCIUM 9.2 mg/dL (8.7-10.3); CARBON DIOXIDE,CO2 28.9 mmol/L (21.0-32.0); CREATININE 2.03 mg/dL (0.51-1.17); EST CRCL DRUG DOSING (CG) 40.88 mL/min; POTASSIUM,K 5.3 mmol/L (3.5-5.1); PROTEIN TOTAL,TP 6.6 g/dL (6.4-8.2)
[2023-08-13 07:39] LABS: INR 1.8 (0.9-1.1); PROTHROMBIN TIME 18.1 SEC (9.2-11.2)
[2023-08-13 07:40] LABS: PTT,PARTIAL THROMBOPLSTIN TIME 83.5 SEC (22.8-31.4)
[2023-08-13] MEDS: Furosemide 40 MG Tab PO SCH (08:38)
[2023-08-13] MEDS: Escitalopram 10 MG Tab PO SCH (08:38)
[2023-08-13] MEDS: Amoxicillin/Clavulanate K 875-125 MG Tab PO SCH ×2 (08:39→20:16)
[2023-08-13] MEDS: Dutasteride 0.5 MG Cap PO SCH (08:39)
[2023-08-13] MEDS: Tamsulosin 0.4 MG Cap.ER PO SCH (08:39)
[2023-08-13] MEDS: DEUTETRABENAZINE PO SCH (08:39)
[2023-08-13] MEDS: Memantine 10 MG Tab PO SCH ×2 (08:39→20:16)
[2023-08-13] MEDS: ClonazePAM 0.5 MG Tab PO SCH ×2 (08:39→13:39)
[2023-08-13] MEDS: PROPRANOLOL HCL 120 MG PO SCH (08:39)
[2023-08-13] MEDS: Heparin Sodium/D5W 250 ML IV SCH (09:06)
[2023-08-13] MEDS ORDERED: Warfarin 2.5 MG Tab PO ONE (18:00)
[2023-08-13] MEDS: atorvaSTATin 10 MG Tab PO SCH (20:16)
[2023-08-14] MEDS: Heparin Sodium/D5W 250 ML IV SCH (05:50)
[2023-08-14] MEDS: Divalproex Sodium Delayed-Release 250 MG Tab.CR PO SCH ×3 (06:12→18:01)
[2023-08-14 07:03] LABS: BASOPHILS ABSOLUTE AUTO 0.04 10^3/uL (0.00-0.10); BASOPHILS PERCENT AUTO 0.6 % (0.0-1.0); EOSINOPHILS ABSOLUTE AUTO 0.16 10^3/uL (0.10-0.30); EOSINOPHILS PERCENT AUTO 2.4 % (1.0-3.0); HEMATOCRIT 46.2 % (40.0-52.0); HEMOGLOBIN 14.9 g/dL (13.0-17.0); IMMATURE GRAN ABSOLUTE AUTO 0.06 10^3/uL (0.00-0.50); IMMATURE GRAN PERCENT AUTO 0.9 % (0.0-5.0); LYMPHOCYTES ABSOLUTE AUTO 1.06 10^3/uL (1.00-4.00); LYMPHOCYTES PERCENT AUTO 16.2 % (20.0-40.0); MEAN CORPUSCULAR HGB CONC 32.3 g/dL (32.0-36.0); MEAN CORPUSCULAR VOLUME 99.4 fL (82.0-92.0); MEAN PLATELET VOLUME 10.7 fL (7.4-10.4); MONOCYTES ABSOLUTE AUTO 0.87 10^3/uL (0.10-0.80); MONOCYTES PERCENT AUTO 13.3 % (2.0-8.0); NEUTROPHILS ABSOLUTE AUTO 4.35 10^3/uL (2.50-7.00); NEUTROPHILS PERCENT AUTO 66.6 % (50.0-70.0); PLATELET COUNT,PLT 145 10^3/uL (150-400); RED BLOOD CELL COUNT 4.65 10^6/uL (4.50-6.00); RED CELL DISTRIBUTION WIDTH 12.7 % (11.5-14.5); WHITE BLOOD CELL COUNT,WBC 6.54 10^3/uL (5.00-10.00)
[2023-08-14 07:17] LABS: ALBUMIN 2.78 g/dL (3.40-5.00); ANION GAP 11.5 mmol/L (5-15); BILIRUBIN TOTAL 0.4 mg/dL (0.2-1.0); CALCIUM 9.5 mg/dL (8.7-10.3); CARBON DIOXIDE,CO2 29.6 mmol/L (21.0-32.0); CREATININE 2.19 mg/dL (0.51-1.17); EST CRCL DRUG DOSING (CG) 37.89 mL/min; POTASSIUM,K 5.1 mmol/L (3.5-5.1)
[2023-08-14 07:32] LABS: INR 2.1 (0.9-1.1); PROTHROMBIN TIME 20.1 SEC (9.2-11.2)
[2023-08-14 07:35] LABS: PTT,PARTIAL THROMBOPLSTIN TIME 53.7 SEC (22.8-31.4)
[2023-08-14] MEDS: DEUTETRABENAZINE PO SCH (08:07)
[2023-08-14] MEDS: PROPRANOLOL HCL 120 MG PO SCH (08:07)
[2023-08-14] MEDS: Tamsulosin 0.4 MG Cap.ER PO SCH (08:09)
[2023-08-14] MEDS: Dutasteride 0.5 MG Cap PO SCH (08:09)
[2023-08-14] MEDS: Memantine 10 MG Tab PO SCH ×2 (08:09→20:07)
[2023-08-14] MEDS: Amoxicillin/Clavulanate K 875-125 MG Tab PO SCH ×2 (08:09→20:07)
[2023-08-14] MEDS: Escitalopram 10 MG Tab PO SCH (08:09)
[2023-08-14] MEDS: ClonazePAM 0.5 MG Tab PO SCH ×2 (08:09→13:49)
[2023-08-14] MEDS ORDERED: Sodium Chloride 0.9% 500 ML IV SCH ×2 (12:30→12:45)
[2023-08-14] MEDS ORDERED: Warfarin 2.5 MG Tab PO ONE (18:00)
[2023-08-14] MEDS: atorvaSTATin 10 MG Tab PO SCH (20:07)
[2023-08-15] MEDS: Divalproex Sodium Delayed-Release 250 MG Tab.CR PO SCH ×2 (06:02→13:24)
[2023-08-15 07:19] LABS: BASOPHILS ABSOLUTE AUTO 0.04 10^3/uL (0.00-0.10); BASOPHILS PERCENT AUTO 0.6 % (0.0-1.0); HEMATOCRIT 46.4 % (40.0-52.0); IMMATURE GRAN ABSOLUTE AUTO 0.07 10^3/uL (0.00-0.50); LYMPHOCYTES ABSOLUTE AUTO 1.23 10^3/uL (1.00-4.00); LYMPHOCYTES PERCENT AUTO 18.4 % (20.0-40.0); MEAN CORPUSCULAR HEMOGLOBIN 32.5 pg (27.0-31.0); MEAN CORPUSCULAR HGB CONC 32.3 g/dL (32.0-36.0); MEAN CORPUSCULAR VOLUME 100.7 fL (82.0-92.0); MEAN PLATELET VOLUME 10.7 fL (7.4-10.4); MONOCYTES ABSOLUTE AUTO 0.89 10^3/uL (0.10-0.80); MONOCYTES PERCENT AUTO 13.3 % (2.0-8.0); NEUTROPHILS ABSOLUTE AUTO 4.27 10^3/uL (2.50-7.00); NEUTROPHILS PERCENT AUTO 63.7 % (50.0-70.0); PLATELET COUNT,PLT 147 10^3/uL (150-400); RED BLOOD CELL COUNT 4.61 10^6/uL (4.50-6.00); RED CELL DISTRIBUTION WIDTH 12.7 % (11.5-14.5)
[2023-08-15 07:35] LABS: ALBUMIN 2.74 g/dL (3.40-5.00); BILIRUBIN TOTAL 0.3 mg/dL (0.2-1.0); CALCIUM 9.4 mg/dL (8.7-10.3); CARBON DIOXIDE,CO2 27.2 mmol/L (21.0-32.0); CREATININE 2.13 mg/dL (0.51-1.17); EST CRCL DRUG DOSING (CG) 38.96 mL/min; POTASSIUM,K 5.2 mmol/L (3.5-5.1); PROTEIN TOTAL,TP 6.6 g/dL (6.4-8.2)
[2023-08-15 07:38] LABS: INR 2.7 (0.9-1.1); PROTHROMBIN TIME 25.5 SEC (9.2-11.2)
[2023-08-15] MEDS: Tamsulosin 0.4 MG Cap.ER PO SCH (08:50)
[2023-08-15] MEDS: Amoxicillin/Clavulanate K 875-125 MG Tab PO SCH (08:50)
[2023-08-15] MEDS: Memantine 10 MG Tab PO SCH (08:50)
[2023-08-15] MEDS: Escitalopram 10 MG Tab PO SCH (08:51)
[2023-08-15] MEDS: ClonazePAM 0.5 MG Tab PO SCH ×2 (08:51→13:24)
[2023-08-15] MEDS: Dutasteride 0.5 MG Cap PO SCH (08:51)
[2023-08-15] MEDS: PROPRANOLOL HCL 120 MG PO SCH (08:52)
[2023-08-15 15:01] VITALS: BP 109/74; PULSE 75
[2023-08-15] MEDS ORDERED: Warfarin 5 MG Tab PO ONE (18:00)
== END 2023-08-15 13:58 | DRG 175 ==
LOC: KA.ED 11:35 → KA.MS 15:17
PROVIDERS: ADMIT Family Medicine; ATTEND Family Medicine
DX: I26.99 Other pulmonary embolism without acute cor pulmonale (principal); Z20.822 Contact with and (suspected) exposure to COVID-19; N18.32 Chronic kidney disease, stage 3b; G10 Huntington's disease; I26.02 Saddle embolus of pulmonary artery with acute cor pulmonale; J96.21 Acute and chronic respiratory failure with hypoxia; J69.0 Pneumonitis due to inhalation of food and vomit; R04.2 Hemoptysis; N18.4 Chronic kidney disease, stage 4 (severe); N17.9 Acute kidney failure, unspecified; R78.81 Bacteremia; E66.01 Morbid (severe) obesity due to excess calories; Z66 Do not resuscitate; E78.00 Pure hypercholesterolemia, unspecified; N40.0 Benign prostatic hyperplasia without lower urinary tract symptoms; F32.A Depression, unspecified; F03.90 Unspecified dementia, unspecified severity, without behavioral disturbance, psychotic disturbance, mood disturbance, and anxiety; F43.22 Adjustment disorder with anxiety; Z90.49 Acquired absence of other specified parts of digestive tract; Z87.442 Personal history of urinary calculi; Z98.890 Other specified postprocedural states; Z79.01 Long term (current) use of anticoagulants; Z86.718 Personal history of other venous thrombosis and embolism; Z79.899 Other long term (current) drug therapy; Z74.01 Bed confinement status; Z11.52 Encounter for screening for COVID-19; Z98.52 Vasectomy status
CPT/HCPCS: 0241U; 36415; 71045; 71275; 74018; 80048; 80053; 80202; 83605; 83735; 83880; 84145; 84484; 85025; 85379; 85610; 85730; 86140; 87040; 87077; 87186; 93010; 96361; 96365; 96376; 99223-GT; 99232-GT; 99233-GT; 99239-GT; 99284; 99285-25; A9270-GY; J1644; J1940; J2185; J3370; J3490; J7030; J7040; J7050; Q3014; Q9967